=== PATIENT | female | born 1935 | race Caucasian/White ===

== ENCOUNTER → 2023-08-14 | Outpatient (CLI) | payer MEDICARE, BC | LOC: M RAD 13:52 | PROVIDERS: ATTEND Specialist | DX: N20.0 Calculus of kidney (principal); N28.1 Cyst of kidney, acquired ==

== ENCOUNTER → 2023-08-21 | Outpatient (CLI) | payer MEDICARE, BC | LOC: M RAD 12:12 | PROVIDERS: ATTEND Physician Assistant | DX: I65.23 Occlusion and stenosis of bilateral carotid arteries (principal) ==

== ENCOUNTER → 2024-06-15 | Outpatient (REF) | payer MEDICARE, BC ==
[2024-06-15 18:00] LABS: LDH LACTATE DEHYDROGENASE 368 U/L (120-246)
[2024-06-15 18:01] LABS: ALBUMIN 3.7 G/DL (3.2-5.2); ALKALINE PHOSPHATASE 170 U/L (35-104); ALT/SGPT 18 U/L (7.0-40); AST/SGOT 22 U/L (<34); BILIRUBIN,DIRECT 0.6 MG/DL (<0.4); BILIRUBIN,TOTAL 6.2 MG/DL (0.3-1.2); TOTAL PROTEIN 7.2 G/DL (5.7-8.2)
[2024-06-15 18:04] LABS: THYROID STIMULATING HORMONE 2.256 uIU/ML (0.55-4.78)
[2024-06-15 20:12] LABS: SOURCE PERIPHERAL SMEAR
[2024-06-17 08:22] LABS: PROTEIN, TOTAL SO 7.2 g/dL (6.1-8.1)
[2024-06-17 12:37] LABS: FREE KAPPA LIGHT CHAINS SERUM 35.2 mg/L (3.3-19.4); FREE LAMBDA LIGHT CHAINS SERUM 28.5 mg/L (5.7-26.3); KAPPA/LAMBDA RATIO SERUM 1.24 (0.26-1.65)
[2024-06-20 12:39] LABS: ALBUMIN SO 4.3 g/dL (3.8-4.8); ALPHA 1 GLOBULINS SO 0.2 g/dL (0.2-0.3); ALPHA 2 GLOBULINS SO 0.5 g/dL (0.5-0.9); BETA 2 GLOBULIN SO 0.8 g/dL (0.2-0.5); BETA GLOBULIN SO 0.5 g/dL (0.4-0.6); GAMMA GLOBULINS SO 0.9 g/dL (0.8-1.7)
== END ==
LOC: M SFHCPLAZ 13:34
PROVIDERS: ATTEND Internal Medicine Hematology
DX: R76.8 Other specified abnormal immunological findings in serum (principal); D59.10 Autoimmune hemolytic anemia, unspecified; D47.2 Monoclonal gammopathy

== ENCOUNTER → 2024-06-29 | Outpatient (CLI) | payer BC, MEDICARE ==
[2024-06-29 10:50] LABS: BASO # 0.1 10^3/uL (0.0-0.2); BASO % 0.5 % (0.0-1.0); EOS # 0.1 10^3/uL (0.0-0.5); HEMATOCRIT 30.5 % (36.0-47.0); LYMPH # 1.5 10^3/uL (1.5-5.0); LYMPH % 15.4 % (24.0-44.0); MONO # 0.6 10^3/uL (0.0-0.8); MONO % 6.2 % (2.0-8.0); NEUTROPHILS # 7.4 10^3/uL (1.5-8.5); NEUTROPHILS % 76.5 % (36.0-66.0); PLATELET COUNT, AUTOMATED 323 10^3/uL (150-450); RED BLOOD COUNT 2.68 10^6/uL (4.00-5.40); WHITE BLOOD COUNT 9.7 10^3/uL (4.0-10.0)
[2024-06-29 11:41] LABS: HEMOGLOBIN 11.4 g/dl (12.0-15.5); MEAN CORPUSCULAR HEMOGLOBIN 38.1 pg (27.0-33.0)
[2024-06-29 11:42] LABS: MEAN CORPUSCULAR HGB CONC 35.3 g/dl (32.0-36.5)
[2024-06-29 11:43] LABS: SOURCE PERIPHERAL SMEAR
== END ==
LOC: M LAB 10:19
PROVIDERS: ATTEND Internal Medicine Hematology
DX: D59.10 Autoimmune hemolytic anemia, unspecified (principal); D47.2 Monoclonal gammopathy; R76.8 Other specified abnormal immunological findings in serum

== ENCOUNTER → 2024-09-14 | Outpatient (REF) | payer MEDICARE, BC ==
[2024-09-14 15:38] LABS: APPEARANCE, URINE TURBID (CLEAR); BACTERIA, URINE AUTO 2+ (NEGATIVE); BILIRUBIN, URINE AUTO NEGATIVE (NEGATIVE); BLOOD, URINE BLOOD 1+ (NEGATIVE); COLOR, URINE YELLOW (YELLOW); GLUCOSE, URINE (UA) AUTO 3+ mg/dL (NEGATIVE); KETONE, URINE AUTO NEGATIVE (NEGATIVE); LEUKOCYTE ESTERASE, URINE AUTO 2+ (NEGATIVE); MUCUS, URINE SMALL (NEGATIVE); NITRITE, URINE AUTO NEGATIVE (NEGATIVE); PROTEIN, URINE AUTO 3+ mg/dL (NEGATIVE); RBC, URINE AUTO 123 /HPF (0-3); SPECIFIC GRAVITY URINE AUTO 1.018 (1.002-1.035); SQUAMOUS EPITHELIAL CELL UR AU 0 /HPF (0-6); TRANSITIONAL EPITHELIAL AUTO 10 /HPF; UROBILINOGEN, URINE AUTO 0.2 mg/dL (0.0-2.0); WBC, URINE AUTO TNTC /HPF (0-3)
== END ==
LOC: M SMT 14:47
PROVIDERS: ATTEND Specialist
DX: N39.0 Urinary tract infection, site not specified (principal)